=== PATIENT | female | born 1975 | race Caucasian/White ===

== ENCOUNTER 2018-10-02 20:57 | Day surgery (SDC) | payer OTHER ==
[~2018-10-02] VITALS: Ht 177.8 cm; Wt 70.8 kg
--- NOTE | ~2018-10-02 | MORECARE ---
CASE MANAGEMENT DISCHARGE SUMMARY PATIENT: MERRY THIBODEAUX SHALINI UNIT: [id number] ADM DATE: 10/03/18 AGE: 42 : 71 SEX: F ROOM/BED: D.2202 AUTHOR: LUCY VAZQUEZ PHYSICIAN: REFERRING PHYSICIAN: ALEX REEVES MD DATE OF SERVICE: 10/06/18 Discharge Plan Patient Name: MERRY THIBODEAUX Facility: [facility]:[place] : 1975 Planned Disposition: Anticipated Discharge Date: Discharge Date: 10/04/2018 Expected LOS: 0 Initial Reviewer: [id number] Initial Review Date: 10/06/2018 Generated: 10/06/18 11:04 am Patient Name: MERRY THIBODEAUX Page [id number] at 1004 All edits/amendments must be made on the electronic document DICTATION DATE: 10/06/18 1004 SUPERVISOR TREE TRIMMING: SEBASTIEN 10/06/18 1004 RPT#: [id number] DC DATE:10/04/18 STATUS: DIS IN [facility] [address] [place] [address] END OF REPORT
[2018-10-02] MEDS ORDERED: FLOVENT DISKU100 MCG INH (21:06)
[2018-10-02] MEDS ORDERED: COPD MED (21:07)
[2018-10-02] MEDS ORDERED: SYMBICORT 16010.2 GM INH (21:07)
[2018-10-02 21:38] LABS: BASOPHILS 0.4 % (0-2); EOSINOPHILS 2.8 % (0-7); HEMATOCRIT 37.6 % (36.0-48.0); HEMOGLOBIN 12.7 g/dL (12-16); LYMPHOCYTES 19.4 % (15-50); MCHC 33.8 g/dL (31.0-37.0); MCV 88.9 fL (80.0-100.0); MONOCYTES 7.9 % (2-11); NEUTROPHILS 69.5 % (40-80); PLATELET COUNT 217 10x3/uL (130-400); RBC 4.23 10x6/uL (4.00-5.40); RDW 15.1 % (11.5-14.5); WBC 5.1 10x3/uL (4.8-10.8)
[2018-10-02 21:55] LABS: ALBUMIN 3.5 g/dL (3.4-5.0); ANION GAP 13.8 mmol/L (8-16); BILIRUBIN - TOTAL 0.53 mg/dL (0.2-1.3); CALCIUM 8.6 mg/dL (8.5-10.1); CARBON DIOXIDE 24.7 mmol/L (21.0-32.0); POTASSIUM - SERUM 3.5 mmol/L (3.5-5.1); PROTEIN - SERUM 7.2 g/dL (6.4-8.2)
[2018-10-02 22:56] LABS: APPEARANCE CLEAR (CLEAR); BILIRUBIN NEGATIVE (NEGATIVE); COLOR YELLOW (YELLOW); GLUCOSE NEGATIVE (NEGATIVE); KETONE SMALL mg/dL (NEGATIVE); NITRITE NEGATIVE (NEGATIVE); PROTEIN NEGATIVE (NEGATIVE); RED CELLS - URINE 0-5 /hpf (0-5); SPECIFIC GRAVITY 1.015 (1.005-1.020); UROBILINOGEN NORMAL (NORMAL)
[2018-10-02 22:59] LABS: HCG SERUM NEGATIVE (NEGATIVE)
[2018-10-03] MEDS ORDERED: SPIRIVA18 MCG INH (02:55)
[2018-10-03] MEDS ORDERED: FLORINEF 0.1 M0.1 MG PO (02:57)
[2018-10-03 04:00] VITALS: BP 117/66
[2018-10-03 04:54] VITALS: BP 117/66; BMI 22.4
[2018-10-03 08:27] VITALS: BP 107/61
[2018-10-03 11:51] VITALS: Ht 177.8 cm; Wt 70.8 kg
[2018-10-03] MEDS ORDERED: HYDROCODON-ACE1 EAC7 PO (11:51)
[2018-10-03] MEDS ORDERED: SCOPOLAMINE1 EACH TRANSDERM (11:51)
[2018-10-03 12:35] VITALS: BP 93/57
[2018-10-03 16:32] VITALS: BP 98/57
[2018-10-03 19:55] VITALS: BP 96/46
[2018-10-04] VITALS: BP 90/42
[2018-10-04 04:00] VITALS: BP 97/42
[2018-10-04 07:46] LABS: BASOPHILS 0.1 % (0-2); EOSINOPHILS 0.2 % (0-7); IMMATURE GRANULOCYTES 0.1 % (0-5); LYMPHOCYTES 11.6 % (15-50); MCH 29.4 pg (26.0-34.0); MCHC 32.9 g/dL (31.0-37.0); MCV 89.5 fL (80.0-100.0); MEAN PLATELET VOLUME 11.6 fL (7.4-10.4); MONOCYTES 7.3 % (2-11); NEUTROPHILS 80.7 % (40-80); PLATELET COUNT 196 10x3/uL (130-400); RDW 15.4 % (11.5-14.5)
[2018-10-04 07:52] LABS: HEMATOCRIT 29.8 % (36.0-48.0); HEMOGLOBIN 9.8 g/dL (12-16); RBC 3.33 10x6/uL (4.00-5.40)
[2018-10-04 08:01] LABS: ALBUMIN 2.5 g/dL (3.4-5.0); ALKALINE PHOSPHATASE 25 U/L (46-116); ALT (SGPT) 9 U/L (10-68); BILIRUBIN - TOTAL 0.29 mg/dL (0.2-1.3); CALC OSMOLALITY 279 mosm/kg (275-300); CALCIUM 7.7 mg/dL (8.5-10.1); CARBON DIOXIDE 25.1 mmol/L (21.0-32.0); CHLORIDE - SERUM 110 mmol/L (98-107); CREATININE - SERUM 0.8 mg/dL (0.6-1.3); GLUCOSE 95 mg/dL (74-106); POTASSIUM - SERUM 3.8 mmol/L (3.5-5.1); PROTEIN - SERUM 5.2 g/dL (6.4-8.2); SODIUM 141 mmol/L (136-145); UREA NITROGEN 9 mg/dL (7-18); eGFR NON AFRICAN AMERICAN 82 mL/min (90-120)
[2018-10-04 08:48] VITALS: BP 106/60
== END 2018-10-04 11:51 | disposition home or self-care (01) ==
LOC: OBSVTIME → D.ER 20:57 → D.OPS 20:57 → D.MS 10-03 01:50 → OBSVTIME 10-03 01:50 → D.ER 10-03 01:50 → D.MS 10-03 01:50 → D.ER 10-03 02:48 → EDSTATUS 10-03 10:00 → D.OPS 10-04 11:51 → D.MS 10-04 11:51
PROVIDERS: Family Medicine
DX: K35.80 Unspecified acute appendicitis (principal); J44.9 Chronic obstructive pulmonary disease, unspecified